=== PATIENT | female | born 1975 | race Hispanic/Latino ===

== ENCOUNTER → 2018-11-18 | Outpatient (CLI) | payer BC ==
--- NOTE | 2018-11-18 11:51 | Diagnostic Imaging Report ---
Cervical spine, 5 views dated 11/18/2018. History: <Neck pain>. Discussion: There is normal lordotic curvature of the cervical spine which is visualized on the lateral view from C1 through the top of T1. There is no evidence of fracture, subluxation, or dislocation. The intervertebral disc spaces are normal. The prevertebral soft tissues are within normal limits as well. IMPRESSION: Normal cervical spine. Signed by: Dr. Keith Em DO on 11/18/2018 11:48 AM
== END ==
LOC: RAD 09:56
PROVIDERS: ATTEND Internal Medicine
DX: M47.812 Spondylosis without myelopathy or radiculopathy, cervical region (principal)
CPT/HCPCS: 72050